=== PATIENT | male | born 1970 | race Caucasian/White ===

== ENCOUNTER 2024-06-17 07:52 | Emergency (ER) | payer OTHER ==
[~2024-06-17] VITALS: Ht 160 cm; Wt 95.3 kg
[~2024-06-17 07:52] MED LIST: ALBUTEROL0.09 MG/A2 IH; AMOXIL500 MG PO; ATENOLOL100 MG; BP MED; CARBATROL300 MG; CARBATROL300 MG PO; FELODIPINE5 MG; HYDROCODONE BIT1 T11 PO; MEDROL DOSEPAK4 MG PO; MOTRIN800 MG PO; PEN-VK500 MG PO; VITAMIN D50000 I2; ZESTRIL,PRINIVI20 MG
[2024-06-17 07:58] VITALS: BP 113/45
[2024-06-17] MEDS ORDERED: APRESOLINE25 MG PO (08:09)
[2024-06-17] MEDS ORDERED: ASPIRIN 325 MG TAB PO ONE (08:35)
[2024-06-17 08:51] LABS: BASO # 0.1 10*3/uL (0.0-0.1); BASO % 0.6 % (0.0-1.0); EOS # 0.1 10*3/uL (0.0-0.4); EOS % 1.1 % (1.0-4.0); HEMATOCRIT 46.9 % (42.0-52.0); MEAN CELL VOLUME 90.2 fl (80.0-94.0); MEAN CORPUSCULAR HGB 30.2 pg (27.0-31.0); MEAN CORPUSCULAR HGB CONC 33.5 g/dl (33.0-37.0); MEAN PLATELET VOLUME 10.3 fl (9.6-12.3); MONO # 1.2 10*3/uL (0.1-1.0); MONO % 10.9 % (3.0-9.0); NEUT # 8.7 10*3/uL (2.3-7.9); NEUT % 80.1 % (47.0-73.0); PLATELET COUNT AUTOMATED 164 10*3/uL (130-400); RED CELL DISTRI WIDTH 12.3 % (0-14.5); WHITE BLOOD COUNT 10.8 10*3/uL (4.8-10.8)
[2024-06-17 09:12] LABS: POTASSIUM 4.4 mmol/L (3.4-5.1); TOTAL PROTEIN 7.9 gm/dL (6.0-8.0)
[2024-06-17] MEDS ORDERED: Lactated Ringer's Solution 1,000 ML IV SCH (09:20)
[2024-06-17 10:50] LABS: BILIRUBIN 1+ (Negative); BLOOD Negative (Negative); CLARITY Cloudy (Clear); COLOR Dark Yellow (Yellow); GLUCOSE Trace (Negative); KETONE 1+ (Negative); LEUKO ESTERASE Negative (Negative); NITRITE Negative (Negative); SPECIFIC GRAVITY 1.025 (1.001-1.030)
[2024-06-17 11:08] LABS: BACTERIA 2+; MUCOUS 3+; RBC 0-2 rbc/hpf (0-2)
== END 2024-06-17 14:46 | disposition home or self-care (01) ==
LOC: ED 07:52
PROVIDERS: Emergency Medicine
DX: U07.1 COVID-19 (principal); E86.0 Dehydration; R55 Syncope and collapse; I10 Essential (primary) hypertension; Z79.899 Other long term (current) drug therapy; Z98.890 Other specified postprocedural states

== ENCOUNTER 2024-12-08 07:33 | Inpatient (IN) | payer OTHER ==
[~2024-12-08] VITALS: Ht 160 cm; Wt 91.4 kg
[2024-12-08] VITALS (9 sets, daily range): BP systolic 99–135; BP diastolic 47–64
[~2024-12-08 07:33] MED LIST changes: +APRESOLINE25 MG PO
[2024-12-08] MEDS ORDERED: SODIUM CHLORIDE 0.9% 1,000 ML IV ONE ×4 (08:05→14:03)
[2024-12-08] MEDS ORDERED: Ondansetron Hydrochloride 4 MG/2 ML VIAL IV ONE ×2 (08:05→16:39)
[2024-12-08] MEDS ORDERED: FAMOTIDINE 50 ML IV ONE (08:05)
[2024-12-08 08:31] LABS: BASO # 0.0 10*3/uL (0.0-0.1); BASO % 0.2 % (0.0-1.0); EOS # 0.0 10*3/uL (0.0-0.4); EOS % 0.1 % (1.0-4.0); MEAN CELL VOLUME 85.4 fl (80.0-94.0); MEAN CORPUSCULAR HGB 30.3 pg (27.0-31.0); MEAN PLATELET VOLUME 12.0 fl (9.6-12.3); MONO # 1.2 10*3/uL (0.1-1.0); MONO % 6.8 % (3.0-9.0); NEUT # 15.3 10*3/uL (2.3-7.9); NEUT % 88.7 % (47.0-73.0); NUCLEATED RED BLOOD CELL 0.0 % (0.0-0.0); NUCLEATED RED BLOOD CELL 0.0 10*3/uL (0.0-0.0); PLATELET COUNT AUTOMATED 426 10*3/uL (130-400); RED CELL DISTRI WIDTH 12.5 % (0-14.5)
[2024-12-08 09:56] LABS: BUN 22 mg/dl (9-23); SGPT/ALT 20 U/L (5-49)
[2024-12-08] MEDS ORDERED: FELODIPINE10 MG PO (12:09)
[2024-12-08] MEDS ORDERED: ZESTRIL20 MG PO (12:10)
[2024-12-08] MEDS ORDERED: ATENOLOL50 M1 PO (12:11)
[2024-12-08] MEDS ORDERED: ACETAMINOPHEN 100 ML IV ONE (15:03)
[2024-12-08] MEDS ORDERED: Midazolam Hydrochloride 2 MG/2 ML VIAL IV ONE (16:39)
[2024-12-08] MEDS ORDERED: Dexamethasone Sodium Phospha 4 MG/ML VIAL IV ONE (16:39)
[2024-12-08] MEDS ORDERED: Lidocaine Hydrochloride 5 ML VIAL IV ONE (16:39)
[2024-12-08] MEDS ORDERED: ROCURONIUM BROMIDE 50 MG/5 ML SYRINGE IV ONE (16:39)
[2024-12-08] MEDS ORDERED: SEVOFLURANE 250 ML BOT INH ONE (16:39)
[2024-12-08] MEDS ORDERED: Ketamine Hydrochloride 50 MG/5 ML SYRINGE IV ONE (16:39)
[2024-12-08] MEDS ORDERED: SUGAMMADEX SODIUM 200 MG/2 ML VIAL IV ONE (16:39)
[2024-12-08] MEDS ORDERED: PROPOFOL 200 MG/20 ML VIAL IV ONE (16:39)
[2024-12-08] MEDS ORDERED: Ondansetron Hydrochloride 4 MG/2 ML VIAL IV PRN (20:25)
[2024-12-08] MEDS ORDERED: POTASSIUM CHLORIDE 10 MEQ in DEXTROSE 5% IN LACTATED RINGER 1,000 ML IV SCH (21:00)
[2024-12-08] MEDS ORDERED: hydrALAZINE hydrochloride 25 MG TAB PO SCH (22:00)
[2024-12-08] MEDS ORDERED: ATENOLOL 50 MG TAB PO SCH (22:00)
[2024-12-08] MEDS ORDERED: ACETAMINOPHEN 100 ML IV SCH (22:00)
[2024-12-08] MEDS ORDERED: carBAMazepine 200 MG TAB PO SCH (22:00)
[2024-12-08] MEDS ORDERED: LISINOPRIL 20 MG TAB PO SCH (22:00)
[2024-12-09] VITALS: BP 114/57
[2024-12-09] MEDS ORDERED: ACETAMINOPHEN 1,000 MG/100 ML SOL IV SCH
[2024-12-09 06:19] LABS: BUN 21 mg/dl (9-23); SGPT/ALT 98 U/L (5-49)
[2024-12-09 08:00] VITALS: BP 127/64
[2024-12-09 08:45] LABS: BASO # 0.0 10*3/uL (0.0-0.1); BASO % 0.1 % (0.0-1.0); EOS # 0.0 10*3/uL (0.0-0.4); EOS % 0.2 % (1.0-4.0); MEAN CORPUSCULAR HGB 30.3 pg (27.0-31.0); MEAN PLATELET VOLUME 10.2 fl (9.6-12.3); MONO # 1.4 10*3/uL (0.1-1.0); MONO % 8.6 % (3.0-9.0); NEUT # 13.8 10*3/uL (2.3-7.9); NEUT % 85.4 % (47.0-73.0); NUCLEATED RED BLOOD CELL 0.0 % (0.0-0.0); NUCLEATED RED BLOOD CELL 0.0 10*3/uL (0.0-0.0); RED CELL DISTRI WIDTH 12.7 % (0-14.5)
[2024-12-09 08:46] LABS: MEAN CELL VOLUME 91.3 fl (80.0-94.0)
[2024-12-09 08:47] LABS: PLATELET COUNT AUTOMATED 202 10*3/uL (130-400)
[2024-12-09 11:51] VITALS: BP 132/60
[2024-12-09] MEDS ORDERED: POTASSIUM CHLORIDE 10 MEQ in DEXTROSE 5% IN LACTATED RINGER 1,000 ML IV SCH (15:30)
[2024-12-09 16:00] VITALS: BP 143/62
[2024-12-09 20:00] VITALS: BP 105/51
[2024-12-10] VITALS: BP 106/59
[2024-12-10 06:22] LABS: BASO # 0.0 10*3/uL (0.0-0.1); BASO % 0.3 % (0.0-1.0); EOS # 0.0 10*3/uL (0.0-0.4); EOS % 0.3 % (1.0-4.0); MEAN CELL VOLUME 91.6 fl (80.0-94.0); MEAN CORPUSCULAR HGB 30.2 pg (27.0-31.0); MEAN PLATELET VOLUME 11.5 fl (9.6-12.3); MONO # 1.1 10*3/uL (0.1-1.0); MONO % 8.4 % (3.0-9.0); NEUT # 11.1 10*3/uL (2.3-7.9); NEUT % 83.4 % (47.0-73.0); NUCLEATED RED BLOOD CELL 0.0 % (0.0-0.0); NUCLEATED RED BLOOD CELL 0.0 10*3/uL (0.0-0.0); PLATELET COUNT AUTOMATED 201 10*3/uL (130-400); RED CELL DISTRI WIDTH 12.6 % (0-14.5)
[2024-12-10 08:00] VITALS: BP 135/69
[2024-12-10 08:16] LABS: BUN 16 mg/dl (9-23); CARBAMAZEPINE (TEGRETOL) TOTAL 9.7 ug/ml (4-12); SGPT/ALT 82 U/L (5-49)
[2024-12-10 10:34] LABS: BILIRUBIN 1+ (Negative); BLOOD Negative (Negative); CLARITY Clear (Clear); COLOR Dark Yellow (Yellow); KETONE Trace (Negative); LEUKO ESTERASE Negative (Negative); NITRITE Negative (Negative); PH 5.5 (4.5-8.0); SPECIFIC GRAVITY >= 1.030 (1.001-1.030); UROBILINOGEN 1.0 E.U./dl (0.0-1.0)
[2024-12-10 11:08] LABS: BACTERIA 3+
[2024-12-10 11:09] LABS: EPITHELIAL CELLS 0-2
[2024-12-10 12:00] VITALS: BP 130/66
[2024-12-10 16:00] VITALS: BP 132/60
[2024-12-10 20:00] VITALS: BP 134/67
[2024-12-11] VITALS: BP 128/71
[2024-12-11 06:22] LABS: BASO # 0.0 10*3/uL (0.0-0.1); BASO % 0.4 % (0.0-1.0); EOS # 0.2 10*3/uL (0.0-0.4); EOS % 2.3 % (1.0-4.0); MEAN CELL VOLUME 90.7 fl (80.0-94.0); MEAN CORPUSCULAR HGB 29.4 pg (27.0-31.0); MEAN PLATELET VOLUME 10.9 fl (9.6-12.3); MONO # 0.8 10*3/uL (0.1-1.0); MONO % 7.8 % (3.0-9.0); NEUT # 8.2 10*3/uL (2.3-7.9); NEUT % 79.6 % (47.0-73.0); NUCLEATED RED BLOOD CELL 0.0 % (0.0-0.0); NUCLEATED RED BLOOD CELL 0.0 10*3/uL (0.0-0.0); PLATELET COUNT AUTOMATED 197 10*3/uL (130-400); RED CELL DISTRI WIDTH 12.5 % (0-14.5)
[2024-12-11 07:18] LABS: BUN 18 mg/dl (9-23)
[2024-12-11 08:00] VITALS: BP 118/66; BP 135/68
[2024-12-11 12:00] VITALS: BP 124/69
[2024-12-11] MEDS ORDERED: CIPRO500 MG PO (14:21)
[2024-12-11] MEDS ORDERED: METRONIDAZOLE500 M1 PO (14:21)
== END 2024-12-11 15:00 | disposition home or self-care (01) | DRG 406 ==
LOC: ED 07:33 → EDHOLD 11:13 → 5E 11:13
PROVIDERS: Emergency Medicine; Internal Medicine; Surgery; ADMIT Internal Medicine; ATTEND Internal Medicine
PROC: 0FT40ZZ Resection of Gallbladder, Open Approach (ICD-10-PCS; principal; 2024-12-08)
PROC: 0FJ44ZZ Inspection of Gallbladder, Percutaneous Endoscopic Approach (ICD-10-PCS; 2024-12-08)
PROC: 0DB80ZZ Excision of Small Intestine, Open Approach (ICD-10-PCS; 2024-12-08)
PROC: 0FB00ZZ Excision of Liver, Open Approach (ICD-10-PCS; 2024-12-08)
PROC: 0DN80ZZ Release Small Intestine, Open Approach (ICD-10-PCS; 2024-12-08)
DX: K82.A1 Gangrene of gallbladder in cholecystitis (principal); E46 Unspecified protein-calorie malnutrition; K63.2 Fistula of intestine; I10 Essential (primary) hypertension; G40.909 Epilepsy, unspecified, not intractable, without status epilepticus; D72.829 Elevated white blood cell count, unspecified; R74.01 Elevation of levels of liver transaminase levels